=== PATIENT | male | born 1990 | race Hispanic/Latino ===

== ENCOUNTER 2023-02-10 10:26 | Emergency (ER) | payer OTHER ==
[~2023-02-10] VITALS: Ht 162.6 cm; Wt 104.3 kg
[2023-02-10 10:54] LABS: BASOPHILS % (AUTO) 0.5 % (0.0-5.0); EOSINOPHILS % (AUTO) 1.9 % (0.0-8.0); LYMPHOCYTES % (AUTO) 22.5 % (21.0-51.0); MEAN CORPUSCULAR HEMOGLOBIN 29.6 pg (27.0-33.0); MEAN CORPUSCULAR HGB CONC 33.3 g/dL (32.0-36.0); MEAN CORPUSCULAR VOLUME 88.9 fL (79-99); MONOCYTES % (AUTO) 5.5 % (3.0-13.0); NEUTROPHILS % (AUTO) 68.8 % (40.0-77.0); PLATELET COUNT (AUTO) 258 K/uL (130-400); RED CELL DISTRIBUTION WIDTH 13.1 % (11.0-15.5); WHITE BLOOD COUNT (AUTO) 8.3 K/uL (4.8-10.8)
[2023-02-10] MEDS ORDERED: FAMOTIDINE 20MG VIAL IV ONE (11:00)
[2023-02-10] MEDS ORDERED: 0.9%NACL 1000ML 1,000 ML IV ONE (11:00)
[2023-02-10] MEDS ORDERED: ONDANSETRON 4MG INJ IVP ONE (11:00)
[2023-02-10 11:03] LABS: CREATININE 0.9 mg/dL (0.5-1.5)
[2023-02-10 11:07] LABS: ALBUMIN 4.1 g/dL (3.5-5.0); TOTAL PROTEIN, SERUM 7.6 g/dL (6.0-8.3)
[2023-02-10] MEDS ORDERED: ONDA4TAB10 PO (12:21)
[2023-02-10] MEDS ORDERED: FAMO-136 PO (12:21)
[2023-02-10 12:47] VITALS: BP 138/92
== END 2023-02-10 12:50 | disposition home or self-care (01) ==
LOC: EDH 10:26
DX: R11.2 Nausea with vomiting, unspecified (principal); R19.7 Diarrhea, unspecified; F10.90 Alcohol use, unspecified, uncomplicated; J45.909 Unspecified asthma, uncomplicated; Z88.0 Allergy status to penicillin
CPT/HCPCS: 99284; 96374; 96375; 80053; 83690; 85025; 36415; 93005; J3490; J2405